=== PATIENT | female | born 1990 | race African-American/Black ===

== ENCOUNTER 2018-01-21 14:56 | Emergency (ER) | payer MEDICARE, OTHER ==
--- NOTE | 2018-01-21 17:06 | RAD REPORT ---
EXAM DESCRIPTION: RAD - Sacrum And Coccyx - 01/21/2018 5:00 pm CLINICAL HISTORY: Coccyx pain, no history of trauma or fall COMPARISON: None. FINDINGS: SI joints and pubic symphysis are unremarkable. Partially imaged hip joints without suspic ious finding. Patient has phleboliths along the floor the pelvis. No sacrum or coccyx fracture seen. No lytic, sclerotic or expansile bony destructive process seen. No presacral soft tissue thickening. There is an acute angulation between the main body of the sacrum a nd the distal 3 coccygeal segments. This appears to be normal variant for the patient. IMPRESSION: No acute finding of the sacrum or coccyx. Full findings detailed in the body of the repo rt.
--- NOTE | 2018-01-21 17:12 | ER ---
Nurse's Notes [facility] Name: Bere Rome Age: 27 yrs Sex: Female : 1990 Arrival Date: 01/21/2018 Time: 15:01 Bed Treatment Private MD: Diagnosis: Contusion of lower back and pelvis-Tailbone contusion Presentation: 01/21 15:06 Presenting complaint: Patient states: my tail bone started hurting 3-4 days ago, denies hj trauma or fall, denies constipation; denies abscess or swelling;. Transition of care: patient was not received from another setting of care. Onset of symptoms was January 21, 2018. Care prior to arrival: None. 15:06 Method Of Arrival: Ambulatory 15:06 Acuity: FABIEN 4 hj Triage Assessment: 15:08 General: Appears in no apparent distress. uncomfortable, Behavior is calm, cooperative, hj appropriate for age. Pain: Complains of pain in coccyx. 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 - Social history:: Smoking status: Patient/guardian denies using tobacco. Screenin:05 Abuse screen: Denies threats or abuse. Nutritional screening: No deficits noted. kb1 Tuberculosis screening: No symptoms or risk factors identified. Fall Risk None identified. Assessment: 16:05 General: Appears in no apparent distress. Behavior is calm, cooperative. Pain: kb1 Complains of pain in tailbone. Neuro: Level of Consciousness is awake, alert, obeys commands, Oriented to person, place, time, situation. Cardiovascular: Patient's skin is warm and dry. Respiratory: Airway is patent. GI: No signs and/or symptoms were reported involving the gastrointestinal system. : No signs and/or symptoms were reported regarding the genitourinary system. Injury Description: denied injury. 17:17 Reassessment: Patient appears in no apparent distress at this time. Patient and/or kb1 family updated on plan of care and expected duration. Pain level reassessed. Patient is alert, oriented x 3, equal unlabored respirations, skin warm/dry/pink. Vital Signs: 15:08 BP 121 / 97; Pulse 115; Resp 20; Temp 98.5(TE); Pulse Ox 97% on R/A; Weight 39.46 kg; hj Height 4 ft. 11 in. (149.86 cm); 17:25 BP 120 / 68; Pulse 98; Resp 18; Pulse Ox 100% ; kb1 15:08 Body Mass Index 17.57 (39.46 kg, 149.86 cm) ED Course: 15:01 Patient arrived in ED. rg4 15:07 Triage completed. hj 15:08 Arm band placed on right wrist. hj 15:40 Tony Adler NP is PHCP. pm1 15:40 Jorge Beatty MD is Attending Physician. pm1 16:05 Georgiana Arambula RN is Primary Nurse. kb1 16:05 Patient has correct armband on for positive identification. Call light in reach. kb1 sitting in chair, wheels locked. 16:15 Radiology exam delayed due to test not completed at this time. jr1 16:54 Patient moved to radiology via wheelchair. jr1 16:54 Sacrum And Coccyx XRAY In Process Unspecified. EDMS 16:59 Patient moved back from radiology. jr1 17:26 No provider procedures requiring assistance completed. Patient did not have IV access kb1 during this emergency room visit. Administered Medications: No medications were administered Outcome: 17:11 Discharge ordered by MD. pm1 17:25 Discharged to home ambulatory, with family. kb1 17:25 Condition: stable 17:25 Discharge instructions given to patient, family, Instructed on discharge instructions, follow up and referral plans. medication usage, Demonstrated understanding of instructions, follow-up care, medications. 17:27 Patient left the ED. kb1 Signatures: Dispatcher [employer] EDMS Tana Melchor jr1 Efe Godinez RN RN Tony Adler NP LAB SUPPORT TECHNICIAN pm1 Josefa Cisneros rg4 Georgiana Arambula RN RN kb1
--- NOTE | 2018-01-21 17:12 | EDPHYS ---
Physician Documentation [facility] Name: Bere Rome Age: 27 yrs Sex: Female : 1990 Arrival Date: 01/21/2018 Time: 15:01 Bed Treatment Private MD: Jorge Whitfield HPI: 01/21 20:00 This 27 yrs old Black Female presents to ER via Ambulatory with complaints of Tailbone pm1 pain. 01/22 01:06 The patient presents with pain that is acute. The symptoms are located in the coccyx pm1 area. The pain does not radiate. The problem was sustained sitting on bench at a sporting event. Onset: The symptoms/episode began/occurred 1 week(s) ago. Modifying factors: The patient symptoms are alleviated by sitting on cushion, the patient symptoms are aggravated by palpation. Associated signs and symptoms: Pertinent negatives: abdominal pain, dysuria, fever, numbness, rectal pain. Severity of symptoms: in the emergency department the symptoms are unchanged. The patient has experienced similar episodes in the past, a few times. The patient has not recently seen a physician. Patient with history of scoliosis. Patient with similar pain to tailbone in the past due to abnormal shape. Patient typically brings around a cushion or circular floater to sit on to present pain to her coccyx. About 1 week ago the patient sat on a bench at a sporting event that caused her to have the pain that she is experiencing now. Patient has not taken any medications for the pain. 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 - Social history:: Smoking status: Patient/guardian denies using tobacco. ROS: 01/22 01:06 Constitutional: Negative for fever, chills, and weight loss, Eyes: Negative for injury, pm1 pain, redness, and discharge, ENT: Negative for injury, pain, and discharge, Neck: Negative for injury, pain, and swelling, Cardiovascular: Negative for chest pain, palpitations, and edema, Respiratory: Negative for shortness of breath, cough, wheezing, and pleuritic chest pain, Abdomen/GI: Negative for abdominal pain, nausea, vomiting, diarrhea, and constipation, : Negative for injury, bleeding, discharge, and swelling, MS/Extremity: Negative for injury and deformity, Skin: Negative for injury, rash, and discoloration. Neuro: Negative for headache, weakness, numbness, tingling, and seizure. Back: Positive for pain at rest, of the sacrum. Exam: :06 Constitutional: This is a well developed, well nourished patient who is awake, alert, pm1 and in no acute distress. Head/Face: Normocephalic, atraumatic. Eyes: Pupils equal round and reactive to light, extra-ocular motions intact. Lids and lashes normal. Conjunctiva and sclera are non-icteric and not injected. Cornea within normal limits. Periorbital areas with no swelling, redness, or edema. ENT: Nares patent. No nasal discharge, no septal abnormalities noted. Tympanic membranes are normal and external auditory canals are clear. Oropharynx with no redness, swelling, or masses, exudates, or evidence of obstruction, uvula midline. Mucous membranes moist. Neck: Trachea midline, no thyromegaly or masses palpated, and no cervical lymphadenopathy. Supple, full range of motion without nuchal rigidity, or vertebral point tenderness. No Meningismus. Chest/axilla: Normal chest wall appearance and motion. Nontender with no deformity. No lesions are appreciated. Cardiovascular: Regular rate and rhythm with a normal S1 and S2. No gallops, murmurs, or rubs. No pulse deficits. Respiratory: Lungs have equal breath sounds bilaterally, clear to auscultation and percussion. No rales, rhonchi or wheezes noted. No increased work of breathing, no retractions or nasal flaring. Abdomen/GI: Soft, non-tender, with normal bowel sounds. No distension or tympany. No guarding or rebound. No evidence of tenderness throughout. :06 Back: pain, that is mild, ROM is normal, tenderness on coccyx. Allergy Physician: Georgiana ISIDRO. Vital Signs: 01/21 15:08 BP 121 / 97; Pulse 115; Resp 20; Temp 98.5(TE); Pulse Ox 97% on R/A; Weight 39.46 kg; hj Height 4 ft. 11 in. (149.86 cm); 17:25 BP 120 / 68; Pulse 98; Resp 18; Pulse Ox 100% ; kb1 15:08 Body Mass Index 17.57 (39.46 kg, 149.86 cm) hj MDM: 15:40 Patient medically screened. pm1 17:10 Data reviewed: vital signs. Data interpreted: Pulse oximetry: on room air is 97 %. pm1 Interpretation: normal. Counseling: I had a detailed discussion with the patient and/or guardian regarding: the historical points, exam findings, and any diagnostic results supporting the discharge/admit diagnosis, lab results, radiology results, the need for outpatient follow up, to return to the emergency department if symptoms worsen or persist or if there are any questions or concerns that arise at home. 01/21 17:16 Order name: Urine Dipstick--Ancillary (enter results) 01/21 17:16 Order name: Urine --Ancillary (enter results) 01/21 16:02 Order name: Urine Dipstick-Ancillary (obtain specimen); Complete Time: 17:16 pm1 01/21 16:02 Order name: Sacrum And Coccyx XRAY; Complete Time: 17:09 pm1 01/21 17:16 Order name: Urine Dipstick-Ancillary [facility] 01/21 17:16 Order name: Urine --Ancillary [facility] 01/21 16:02 Order name: Urine Test (obtain specimen); Complete Time: 17:16 pm1 Administered Medications: No medications were administered Disposition: 01/22 06:55 Co-signature as Attending Physician, Jorge Beatty MD I agree with the assessment and marly plan of care. Disposition: 01/21/18 17:11 Discharged to Home. Impression: Contusion of lower back and pelvis - Tailbone contusion. - Condition is Stable. - Discharge Instructions: Tailbone Injury. - Medication Reconciliation Form, Thank You Letter form. - Follow up: Emergency Department; When: As needed; Reason: Worsening of condition. Follow up: Private Physician; When: 2 - 3 days; Reason: Recheck today's complaints, Continuance of care, Re-evaluation by your physician. - Problem is new. - Symptoms have improved. - Notes: Take ibuprofen or tylenol as needed for pain Signatures: Dispatcher [employer] Jorge Cook MD MD cha Joaquin, Henry, RN RN hj Tony Adler, ROCIO RESIDENT SERVICES COORDINATOR pm1 Georgiana Arambula RN RN kb1
[2018-01-21 17:42] LABS: Urine Blood NEGATIVE (NEG); Urine Glucose NEGATIVE (NEG); Urine Protein TRACE (NEG); Urine Specific Gravity 1.015 (1.005-1.030); Urine pH 8.5 (5.0-7.0)
== END 2018-01-21 17:27 | disposition home or self-care (01) ==
LOC: ER 14:56
DX: S30.0XXA Contusion of lower back and pelvis, initial encounter (principal); X58.XXXA Exposure to other specified factors, initial encounter; Y93.89 Activity, other specified; Y92.39 Other specified sports and athletic area as the place of occurrence of the external cause; D64.9 Anemia, unspecified
CPT/HCPCS: 72220; 81003; 81025; 99283

== ENCOUNTER 2022-06-22 21:06 | Emergency (ER) | payer MEDICARE ==
--- NOTE | 2022-06-22 22:15 | RAD REPORT ---
EXAM DESCRIPTION: Nargis Mccoy And Jenise (2 Views)06/22/2022 9:42 pm CLINICAL HISTORY: Cough COMPARISON: 2017 FINDINGS: The lungs appear clear of acute infiltrate. The heart is normal size Potts rods have been placed into the spine. Marked scoliosis is present. IMPRESSION: No acute abnormalities displayed
[2022-06-22] MEDS ORDERED: WATER FOR INJ,STERILE 10 ML ONE (22:34)
--- NOTE | 2022-06-22 22:55 | ER ---
Nurse's Notes [facility] Name: Bere Rome Age: 31 yrs Sex: Female : 1990 Arrival Date: 06/22/2022 Time: 21:09 Bed 7 Private MD: Diagnosis: Influenza due to unidentified influenza virus with other respiratory manifestations;SARS-associated coronavirus as the cause of diseases classified elsewhere Presentation: 06/22 21:21 Chief complaint: Patient states: my chest started hurting Sunday, it comes and goes. aa9 Coronavirus screen: Vaccine status: Patient reports receiving the 2nd dose of the covid vaccine. Ebola Screen: No symptoms or risks identified at this time. Initial Sepsis Screen: Does the patient meet any 2 criteria? No. Patient's initial sepsis screen is negative. Does the patient have a suspected source of infection? No. Patient's initial sepsis screen is negative. Risk Assessment: Do you want to hurt yourself or someone else? Patient reports no desire to harm self or others. Onset of symptoms was June 18, 2022. 21:21 Method Of Arrival: Ambulatory aa9 21:21 Acuity: FABIEN 3 aa9 Triage Assessment: 21:23 General: Appears in no apparent distress. uncomfortable, Behavior is cooperative, aa9 anxious. Pain: Complains of pain in chest. Pain: Pain currently is 10 out of 10 on a pain scale. Cardiovascular: Reports chest pain, Patient's skin is warm and dry. Historical: - Allergies: 21:23 No Known Allergies; aa9 - Home Meds: 22:00 metoprolol tartrate 25 mg Oral tab 1 tab once daily [Active]; escitalopram oxalate 10 eh3 mg oral tab 1 tab once daily [Active]; - PMHx: 21:23 scoliosis; aa9 21:26 Depressive disorder; Hypertensive disorder; aa9 21:54 Anemia; ld1 - PSHx: 21:23 3 scoliosis sx; aa9 - Immunization history:: Client reports receiving the 2nd dose of the Covid vaccine. - Social history:: Smoking status: Patient denies any tobacco usage or history of. Screenin:27 Abuse screen: Denies threats or abuse. Denies injuries from another. Nutritional aa9 screening: No deficits noted. Tuberculosis screening: No symptoms or risk factors identified. Fall Risk None identified. Assessment: 21:46 General: Appears in no apparent distress. comfortable, Behavior is calm, cooperative, ld1 appropriate for age. Pain: Denies pain. Pain: Complains of pain in mid-sternal area and chest Pain does not radiate. Pain currently is 6 out of 10 on a pain scale. Quality of pain is described as throbbing, Pain began 2-3 days ago. Neuro: Level of Consciousness is awake, alert, obeys commands, Oriented to person, place, time, situation. Cardiovascular: Capillary refill < 3 seconds Patient's skin is warm and dry. Rhythm is sinus rhythm. Respiratory: Airway is patent Respiratory effort is even, unlabored. GI: Abdomen is flat, non-distended. : No signs and/or symptoms were reported regarding the genitourinary system. EENT: No signs and/or symptoms were reported regarding the EENT system. Derm: No signs and/or symptoms reported regarding the dermatologic system. Musculoskeletal: No signs and/or symptoms reported regarding the musculoskeletal system. 23:18 Reassessment: Patient appears in no apparent distress at this time. Patient is alert, ld1 oriented x 3, equal unlabored respirations, skin warm/dry/pink. Vital Signs: 21:21 BP 138 / 93; Pulse 113; Resp 16 S; Temp 97.5(O); Pulse Ox 98% on R/A; Weight 35.83 kg aa9 (R); Height 4 ft. 9 in. (144.78 cm) (R); Pain 10/10; 23:18 BP 121 / 83; Pulse 85; Resp 19; Pulse Ox 100% on R/A; ld1 21:21 Body Mass Index 17.10 (35.83 kg, 144.78 cm) aa9 ED Course: 21:09 Patient arrived in ED. bp1 21:10 Renetta Ayala FNP-C is PHCP. snw 21:10 Jorge Beatty MD is Attending Physician. snw 21:15 Luh Garcia, DWAINE is Primary Nurse. ld1 21:23 Triage completed. aa9 21:26 Arm band placed on. aa9 21:43 Chest Pa And Lat (2 Views) XRAY In Process Unspecified. EDMS 21:46 Patient has correct armband on for positive identification. Placed in gown. Bed in low ld1 position. Call light in reach. Side rails up X2. classroom monitor on. Pulse ox on. NIBP on. Door closed. Noise minimized. Warm blanket given. 21:46 No provider procedures requiring assistance completed. Patient maintains SpO2 ld1 saturation greater than 95% on room air. 22:16 SARS-COV-2 RT PCR (Document "Date of Onset" if Symptomatic) Sent. eh3 22:16 Throat Culture Sent. eh3 23:19 Patient did not have IV access during this emergency room visit. ld1 Administered Medications: No medications were administered Medication: 21:46 VIS not applicable for this client. ld1 Outcome: 22:54 Discharge ordered by . snkaykay 23:18 Discharged to home ambulatory, with family. ld1 23:18 Condition: stable 23:18 Discharge instructions given to patient, family, Instructed on discharge instructions, follow up and referral plans. Demonstrated understanding of instructions, follow-up care. 23:19 Patient left the ED. ld1 Signatures: Dispatcher [employer] EDMS Renetta Ayala, JEWEL-C WALKING DRAGLINE OPERATOR-CsnLulu Hernandez [facility] Luh Garcia, RN RN ld1 Charlotte Castro, DWAINE RN eh3 Adelina Garcia, RN RN aa9
--- NOTE | 2022-06-22 22:55 | EDPHYS ---
Physician Documentation [facility] Name: Bere Rome Age: 31 yrs Sex: Female : 1990 Arrival Date: 06/22/2022 Time: 21:09 Bed 7 Private MD: MILVIA Physician Jorge Beatty HPI: 06/22 21:36 This 31 yrs old Black Female presents to ER via Ambulatory with complaints of Chest snw Pain. 21:36 The patient or guardian reports chest pain that is located primarily in the anterior snw chest wall. The pain does not radiate. Associated signs and symptoms: Pertinent positives: mild fever on Sunday (4 days ago). The chest pain is described as squeezing, intermittent. Duration: The patient or guardian reports multiple episodes, that wax and wane. Severity of pain: At its worst the pain was moderate. The patient has not experienced similar symptoms in the past. The patient has not recently seen a physician. Historical: - Allergies: 21:23 No Known Allergies; aa9 - Home Meds: 22:00 metoprolol tartrate 25 mg Oral tab 1 tab once daily [Active]; escitalopram oxalate 10 eh3 mg oral tab 1 tab once daily [Active]; - PMHx: 21:23 scoliosis; aa9 21:26 Depressive disorder; Hypertensive disorder; aa9 21:54 Anemia; ld1 - PSHx: 21:23 3 scoliosis sx; aa9 - Immunization history:: Client reports receiving the 2nd dose of the Covid vaccine. - Social history:: Smoking status: Patient denies any tobacco usage or history of. ROS: 21:32 Constitutional: Negative for fever, chills, and weight loss, Eyes: Negative for injury, snw pain, redness, and discharge, ENT: Negative for injury, pain, and discharge, Neck: Negative for injury, pain, and swelling, Respiratory: Negative for shortness of breath, cough, wheezing, and pleuritic chest pain, Abdomen/GI: Negative for abdominal pain, nausea, vomiting, diarrhea, and constipation, Back: Negative for injury and pain, : Negative for injury, bleeding, discharge, and swelling, MS/Extremity: Negative for injury and deformity, Skin: Negative for injury, rash, and discoloration, Neuro: Negative for headache, weakness, numbness, tingling, and seizure, Psych: Negative for depression, anxiety, suicide ideation, homicidal ideation, and hallucinations. 21:32 Cardiovascular: Positive for chest pain, of the mid-sternal area. Exam: 22:56 Constitutional: This is a well developed, well nourished patient who is awake, alert, snw and in no acute distress. Head/Face: Normocephalic, atraumatic. Eyes: Pupils equal round and reactive to light, extra-ocular motions intact. Lids and lashes normal. Conjunctiva and sclera are non-icteric and not injected. Cornea within normal limits. Periorbital areas with no swelling, redness, or edema. ENT: Nares patent. No nasal discharge, no septal abnormalities noted. Tympanic membranes are normal and external auditory canals are clear. Oropharynx with no redness, swelling, or masses, exudates, or evidence of obstruction, uvula midline. Mucous membranes moist. Neck: Trachea midline, no thyromegaly or masses palpated, and no cervical lymphadenopathy. Supple, full range of motion without nuchal rigidity, or vertebral point tenderness. No Meningismus. Chest/axilla: Normal chest wall appearance and motion. Nontender with no deformity. No lesions are appreciated. Cardiovascular: Regular rate and rhythm with a normal S1 and S2. No gallops, murmurs, or rubs. Normal PMI, no JVD. No pulse deficits. Respiratory: Lungs have equal breath sounds bilaterally, clear to auscultation and percussion. No rales, rhonchi or wheezes noted. No increased work of breathing, no retractions or nasal flaring. Abdomen/GI: Soft, non-tender, with normal bowel sounds. No distension or tympany. No guarding or rebound. No evidence of tenderness throughout. 22:56 Skin: Warm, dry with normal turgor. Normal color with no rashes, no lesions, and no evidence of cellulitis. MS/ Extremity: Pulses equal, no cyanosis. Neurovascular intact. Full, normal range of motion. Neuro: Awake and alert, GCS 15, oriented to person, place, time, and situation. Cranial nerves II-XII grossly intact. Motor strength 5/5 in all extremities. Sensory grossly intact. Cerebellar exam normal. Normal gait. Psych: Awake, alert, with orientation to person, place and time. Behavior, mood, and affect are within normal limits. 22:56 Back: scoliosis that is marked. Vital Signs: 21:21 BP 138 / 93; Pulse 113; Resp 16 S; Temp 97.5(O); Pulse Ox 98% on R/A; Weight 35.83 kg aa9 (R); Height 4 ft. 9 in. (144.78 cm) (R); Pain 10/10; 23:18 BP 121 / 83; Pulse 85; Resp 19; Pulse Ox 100% on R/A; ld1 21:21 Body Mass Index 17.10 (35.83 kg, 144.78 cm) aa9 MDM: 21:11 Patient medically screened. snw 22:55 ECG:. Data reviewed: vital signs, nurses notes. Counseling: I had a detailed discussion snw with the patient and/or guardian regarding: the historical points, exam findings, and any diagnostic results supporting the discharge/admit diagnosis, the presence of at least one elevated blood pressure reading (>120/80) during this emergency department visit, the need for outpatient follow up, to return to the emergency department if symptoms worsen or persist or if there are any questions or concerns that arise at home. Special discussion: Based on the patient's history, exam, and Dx evaluation, there is no indication for emergent intervention or inpatient Tx. It is understood by the patient/guardian that if the Sx's persist or worsen they need to return immediately for re-evaluation. 06/22 21:25 Order name: Flu; Complete Time: 22:01 snw 06/22 21:25 Order name: Strep; Complete Time: 22:01 snw 06/22 21:11 Order name: EKG; Complete Time: 21:11 snw 06/22 21:11 Order name: Chest Pa And Lat (2 Views) XRAY; Complete Time: 22:18 snw 06/22 21:25 Order name: SARS-COV-2 RT PCR (Document "Date of Onset" if Symptomatic); Complete Time: snw 22:41 06/22 22:03 Order name: Throat Culture EDMS EC: Rate is 86 beats/min. Rhythm is regular. QRS [place] is Normal. MD interval is shortened. snw QRS interval is normal. QT interval is normal. No Q waves. T waves are Normal. No ST changes noted. Clinical impression: NSR w/ Non-specific ST/T Changes. Administered Medications: No medications were administered Disposition Summary: 06/22/22 22:54 Discharge Ordered Location: Home snw Condition: Stable snw Diagnosis - Influenza due to unidentified influenza virus with other respiratory manifestations snw - SARS-associated coronavirus as the cause of diseases classified elsewhere snw Followup: snw - With: Emergency Department - When: As needed - Reason: Worsening of condition Followup: snw - With: Private Physician - When: 2 - 3 days - Reason: Recheck today's complaints, Continuance of care, Re-evaluation by your physician Discharge Instructions: - Discharge Summary Sheet snw - Influenza, Adult snw - COVID-19 snw - 10 Things You Can Do to Manage Your COVID-19 Symptoms at Home - [facility] sn - COVID-19: Quarantine vs. Isolation - [facility] snw - Prevent the Spread of COVID-19 if You Are Sick - [facility] snw Forms: - Medication Reconciliation Form snw - Thank You Letter snw - Antibiotic Education snw - Prescription Opioid Use snw - Work release form snw - Family Work Release ld1 Signatures: Dispatcher [employer] EDMS Renetta Ayala, PATIENT ACCESS MANAGER-C PATIENT ACCESS MANAGER-Csnw Luh Garcia RN RN ld1 Charlotte Castro, RN RN eh3 Adelina Garcia RN RN aa9
[2022-06-23 02:05] VITALS: TEMP 97.5
[2022-06-23 02:07] VITALS: BP 121/83; O2SAT 100
--- NOTE | 2022-06-24 15:22 | EKG ---
Test Date: 2022-06-22 Test Time: 21:16:31 Timber Skidder: PETE MEASUREMENT RESULTS: Intervals: Rate: 86 OR: 110 QRSD: 82 QT: 364 QTc: 435 [place]: P: 73 OR: 110 QRS: 72 T: 72 INTERPRETIVE STATEMENTS: Sinus rhythm with sinus arrhythmia with short OR Otherwise normal ECG Compared to ECG 09/12/2017 20:07:35 Short OR interval now present T-wave abnormality no longer present Electronically Signed On 06-24-22 15:19:27 CDT by Tomi Dejesus
== END 2022-06-22 23:19 | disposition home or self-care (01) ==
LOC: ER 21:06
DX: U07.1 COVID-19 (principal); J11.1 Influenza due to unidentified influenza virus with other respiratory manifestations; I10 Essential (primary) hypertension; F32.A Depression, unspecified
CPT/HCPCS: 93005; 87070; 87081; 87804 ×2; 71046; 99284; U0003